=== PATIENT | female | born 1995 | race Caucasian/White ===

== ENCOUNTER 2018-10-30 19:40 | Emergency (ER) | payer OTHER ==
[~2018-10-30] VITALS: Ht 157.5 cm; Wt 100.0 kg
[2018-10-30 19:47] VITALS: BP 147/97
[2018-10-30] MEDS ORDERED: BENZ-16 PO (20:23)
[2018-10-30] MEDS ORDERED: AZIT250T PO (20:23)
== END 2018-10-30 21:11 | disposition home or self-care (01) ==
LOC: ER 19:42 → EEVIPCON 19:42 → ER 21:11
DX: J06.9 Acute upper respiratory infection, unspecified (principal); Z87.891 Personal history of nicotine dependence; Z79.899 Other long term (current) drug therapy
CPT/HCPCS: 99283

== ENCOUNTER 2019-02-01 09:43 | Outpatient (CLI) | payer OTHER ==
[~2019-02-01 09:43] MED LIST: AZIT250T PO
[2019-02-01 10:17] LABS: BASOPHILS # (AUTO) 0.1 X10'3 (0-0.2); BASOPHILS % (AUTO) 0.7 % (0-1); EOSINOPHILS # (AUTO) 0.3 X10'3 (0-0.9); HEMOGLOBIN 13.3 g/dl (12.0-16.0); LYMPHOCYTES # (AUTO) 2.5 X10'3 (1.1-4.8); LYMPHOCYTES % (AUTO) 35.9 % (21-51); MEAN CORPUSCULAR HEMOGLOBIN 26.3 PG (27.0-31.0); MEAN CORPUSCULAR HGB CONC 33.1 g/dL (33.0-36.5); MEAN CORPUSCULAR VOLUME 79.5 FL (78-98); MEAN PLATELET VOLUME 7.1 FL (7.4-10.4); MONOCYTES # (AUTO) 0.6 X10'3 (0-0.9); NEUTROPHILS # (AUTO) 3.5 X10'3 (1.8-7.7); NEUTROPHILS % (AUTO) 49.4 % (42-75); PLATELET COUNT 339 X10'3 (140-440); RED BLOOD COUNT 5.04 X10'6 (4.20-5.60); RED CELL DISTRIBUTION WIDTH 14.7 % (11.5-14.5)
[2019-02-01 10:18] LABS: CLARITY,URINE CLEAR (Clear); COLOR,URINE YELLOW (Yellow); GLUCOSE, URINE NEGATIVE (Neg); KETONES,URINE NEGATIVE (Neg); LEUKOCYTE ESTERASE ,URINE NEGATIVE (Neg); NITRITES, URINE NEGATIVE (Neg); OCCULT BLOOD,URINE NEGATIVE (Neg); PH,URINE 5.5 (4.8-8.0); PROTEIN,URINE NEGATIVE (Neg); UROBILINOGEN,URINE 0.2 E.U/dL (0.2-1.0)
[2019-02-01 10:19] LABS: UA COLLECTION TYPE CLN CATCH MIDSTREAM
[2019-02-01 10:39] LABS: ALANINE AMINOTRANSFERASE 28 U/L (12-78); ALBUMIN 3.8 G/DL (3.4-5.0); ALBUMIN/GLOBULIN RATIO 1.1 (1.1-1.5); ALKALINE PHOSPHATASE 28 IU/L (46-116); ANION GAP 9 (8-16); ASPARTATE AMINO TRANSFERASE 16 U/L (10-37); BILIRUBIN,TOTAL 0.3 MG/DL (0.1-1.0); BLOOD UREA NITROGEN 7 MG/DL (7-18); BUN/CREATININE RATIO 11.9 (6.6-38.0); CHLORIDE 105 MMOL/L (99-107); CHOL/HDL RATIO 3.9 (0.00-4.99); CHOLESTEROL 156 MG/DL (0-200); CREATININE 0.59 MG/DL (0.40-0.90); GLUCOSE 87 MG/DL (70-104); HDL CHOLESTEROL 40 MG/DL (35-60); LDL CHOLESTEROL 96 MG/DL (50-100); POTASSIUM 3.7 MMOL/L (3.5-5.1); SODIUM 140 MMOL/L (135-145); TOTAL CARBON DIOXIDE 26.1 MMOL/L (24-32); TOTAL PROTEIN 7.4 G/DL (6.4-8.2); TRIGLYCERIDES 125 MG/DL (20-135); eGFR > 90 ML/MIN
== END 2019-02-01 23:59 | disposition home or self-care (01) ==
LOC: LAB 09:43
PROVIDERS: ATTEND Family Medicine
DX: J30.2 Other seasonal allergic rhinitis (principal); G47.30 Sleep apnea, unspecified; F32.9 Major depressive disorder, single episode, unspecified; F41.9 Anxiety disorder, unspecified; Z76.89 Persons encountering health services in other specified circumstances; Z87.891 Personal history of nicotine dependence
CPT/HCPCS: 36415; 80053; 80061; 81003; 84439; 84443; 85025

== ENCOUNTER 2019-04-11 20:57 | Emergency (ER) | payer OTHER ==
[~2019-04-11] VITALS: Ht 157.5 cm; Wt 97.7 kg
[2019-04-11 21:00] VITALS: BP 144/91
[2019-04-11] MEDS ORDERED: dexamethasone 4mg tablet PO ONE (21:45)
[2019-04-11] MEDS ORDERED: IBUP-1985 PO (21:49)
== END 2019-04-11 22:14 | disposition home or self-care (01) ==
LOC: ER 20:57
DX: J02.9 Acute pharyngitis, unspecified (principal); R13.10 Dysphagia, unspecified; R06.02 Shortness of breath; R09.89 Other specified symptoms and signs involving the circulatory and respiratory systems; R59.0 Localized enlarged lymph nodes; Z91.018 Allergy to other foods; Z79.2 Long term (current) use of antibiotics; Z79.1 Long term (current) use of non-steroidal anti-inflammatories (NSAID)
CPT/HCPCS: 87081; 87880; 99283

== ENCOUNTER 2019-05-19 17:31 | Emergency (ER) | payer OTHER ==
[~2019-05-19] VITALS: Ht 157.5 cm; Wt 93.0 kg
[~2019-05-19 17:31] MED LIST changes: +IBUP-1985 PO
[2019-05-19 17:46] VITALS: BP 154/99
[2019-05-19] MEDS ORDERED: meclizine 12.5mg tablet PO ONE (19:10)
[2019-05-19] MEDS ORDERED: DICY10CA88 PO (19:15)
[2019-05-19] MEDS ORDERED: MECL-111 PO (19:15)
[2019-05-19] MEDS ORDERED: ONDA4TAB6 PO (19:15)
== END 2019-05-19 19:30 | disposition home or self-care (01) ==
LOC: ER 17:31
DX: H81.399 Other peripheral vertigo, unspecified ear (principal); R11.2 Nausea with vomiting, unspecified; F32.9 Major depressive disorder, single episode, unspecified; Z79.2 Long term (current) use of antibiotics; Z79.899 Other long term (current) drug therapy
CPT/HCPCS: 99283; J8597

== ENCOUNTER 2019-07-10 17:20 | Emergency (ER) | payer OTHER ==
[~2019-07-10] VITALS: Ht 157.5 cm; Wt 97.0 kg
[~2019-07-10 17:20] MED LIST changes: +DICY10CA88 PO; +MECL-159 PO; +ONDA4TAB6 PO
[2019-07-10 17:22] VITALS: BP 155/88
[2019-07-10] MEDS ORDERED: penicillin G benzathine 1.2 million unit/2ml syringe IM ONE (18:30)
== END 2019-07-10 18:51 | disposition home or self-care (01) ==
LOC: ER 17:21
DX: J02.9 Acute pharyngitis, unspecified (principal); Z79.899 Other long term (current) drug therapy
CPT/HCPCS: 87081; 87880; 96372; 99284; J0561

== ENCOUNTER 2019-11-18 21:51 | Emergency (ER) | payer OTHER ==
[~2019-11-18] VITALS: Ht 157.5 cm; Wt 93.6 kg
[2019-11-18 21:55] VITALS: BP 136/93
[2019-11-18 22:31] LABS: BASOPHILS # (AUTO) 0.1 X10'3 (0-0.2); BASOPHILS % (AUTO) 0.6 % (0-1); EOSINOPHILS # (AUTO) 0.4 X10'3 (0-0.9); EOSINOPHILS % (AUTO) 3.9 % (0-6); HEMATOCRIT 40.5 % (35.0-45.0); HEMOGLOBIN 13.4 g/dl (12.0-16.0); LYMPHOCYTES # (AUTO) 2.9 X10'3 (1.1-4.8); LYMPHOCYTES % (AUTO) 29.4 % (21-51); MEAN CORPUSCULAR HEMOGLOBIN 26.4 PG (27.0-31.0); MEAN CORPUSCULAR HGB CONC 33.1 g/dL (33.0-36.5); MEAN CORPUSCULAR VOLUME 79.9 FL (78-98); MEAN PLATELET VOLUME 7.5 FL (7.4-10.4); MONOCYTES # (AUTO) 0.9 X10'3 (0-0.9); MONOCYTES % (AUTO) 9.4 % (2-12); NEUTROPHILS # (AUTO) 5.6 X10'3 (1.8-7.7); NEUTROPHILS % (AUTO) 56.7 % (42-75); PLATELET COUNT 350 X10'3 (140-440); RED BLOOD COUNT 5.07 X10'6 (4.20-5.60); RED CELL DISTRIBUTION WIDTH 14.6 % (11.5-14.5); WHITE BLOOD COUNT 9.8 X10'3 (4.5-11.0)
[2019-11-18 22:42] LABS: URINE HCG NEGATIVE (NEG)
[2019-11-18 22:45] LABS: CLARITY,URINE CLEAR (Clear); COLOR,URINE YELLOW (Yellow); GLUCOSE, URINE NEGATIVE (Neg); KETONES,URINE NEGATIVE (Neg); LEUKOCYTE ESTERASE ,URINE NEGATIVE (Neg); NITRITES, URINE NEGATIVE (Neg); OCCULT BLOOD,URINE LARGE (Neg); PH,URINE 5.5 (4.8-8.0); PROTEIN,URINE NEGATIVE (Neg); UROBILINOGEN,URINE 0.2 E.U/dL (0.2-1.0)
[2019-11-18 22:46] LABS: ALANINE AMINOTRANSFERASE 21 U/L (12-78); ALBUMIN 3.8 G/DL (3.4-5.0); ALKALINE PHOSPHATASE 30 IU/L (46-116); ANION GAP 7 (8-16); ASPARTATE AMINO TRANSFERASE 15 U/L (10-37); BILIRUBIN,TOTAL 0.2 MG/DL (0.1-1.0); BLOOD UREA NITROGEN 10 MG/DL (7-18); BUN/CREATININE RATIO 12.8 (6.6-38.0); CALCIUM 9.5 MG/DL (8.5-10.1); CHLORIDE 108 MMOL/L (99-107); CREATININE 0.78 MG/DL (0.40-0.90); GLUCOSE 78 MG/DL (70-104); POTASSIUM 4.4 MMOL/L (3.5-5.1); SODIUM 144 MMOL/L (135-145); TOTAL CARBON DIOXIDE 28.7 MMOL/L (24-32); TOTAL PROTEIN 7.6 G/DL (6.4-8.2); eGFR 89 ML/MIN
[2019-11-18 22:52] LABS: UA COLLECTION TYPE CLN CATCH MIDSTREAM
[2019-11-18 22:53] LABS: BACTERIA,URINE FEW /HPF (Neg); RBC,URINE 0-2 /HPF (0-2); SQUAMOUS EPITHELIAL CELL,UR FEW /LPF (FEW); WBC,URINE 0-4 /HPF (0-4)
[2019-11-18 22:55] LABS: MAGNESIUM 2.3 MG/DL (1.5-2.4)
== END 2019-11-18 23:21 | disposition home or self-care (01) ==
LOC: ER 21:52 → EEVIPCON 21:52 → ER 23:21
DX: R53.81 Other malaise (principal); R53.83 Other fatigue; R63.0 Anorexia
CPT/HCPCS: 36415; 80053; 81001; 81025; 83735; 84443; 85025; 99283

== ENCOUNTER 2022-07-10 05:28 | Inpatient (IN) | payer MEDICAID, OTHER ==
[2022-07-08 14:54] LABS: BASOPHILS % (AUTO) 0.6 % (0-1); EOSINOPHILS # (AUTO) 0.2 X10'3 (0-0.9); EOSINOPHILS % (AUTO) 3.2 % (0-6); LYMPHOCYTES # (AUTO) 1.5 X10'3 (1.1-4.8); LYMPHOCYTES % (AUTO) 21.6 % (21-51); MEAN CORPUSCULAR HEMOGLOBIN 25.4 PG (27.0-31.0); MEAN CORPUSCULAR HGB CONC 32.5 g/dL (33.0-36.5); MEAN PLATELET VOLUME 7.2 FL (7.4-10.4); MONOCYTES # (AUTO) 0.6 X10'3 (0-0.9); MONOCYTES % (AUTO) 9.2 % (2-12); NEUTROPHILS # (AUTO) 4.4 X10'3 (1.8-7.7); NEUTROPHILS % (AUTO) 65.4 % (42-75); PRE OP HEMATOCRIT 38.6 % (35.0-45.0); PRE OP HEMOGLOBIN 12.6 g/dL (12.0-16.0); PRE OP PLATELET COUNT 307 X10'3 (140-440); RED BLOOD COUNT 4.95 X10'6 (4.20-5.60); RED CELL DISTRIBUTION WIDTH 16.5 % (11.5-14.5)
[2022-07-08 15:11] LABS: ALBUMIN 3.8 G/DL (3.4-5.0); ALBUMIN/GLOBULIN RATIO 0.9 (1.1-1.5); ALKALINE PHOSPHATASE 37 IU/L (46-116); BLOOD UREA NITROGEN 5 MG/DL (7-18); CALCIUM 9.5 MG/DL (8.5-10.1); CHLORIDE 104 MMOL/L (99-107); PRE OP ALT 23 U/L (30-65); PRE OP ANION GAP 4 (8-16); PRE OP AST 19 U/L (10-37); PRE OP BILIRUB, TOTAL 0.2 MG/DL (0.0-1.0); PRE OP GLUCOSE 85 MG/DL (70-104); PRE OP POTASSIUM 3.6 MMOL/L (3.4-5.1); PRE OP SODIUM 137 MMOL/L (135-145); TOTAL PROTEIN 7.9 G/DL (6.4-8.2); eGFR > 90 ML/MIN
[2022-07-08 15:14] LABS: HCG SERUM QL NEGATIVE
[2022-07-10] VITALS (22 sets, daily range): BP systolic 103–146; BP diastolic 63–90
[~2022-07-10] VITALS: Ht 157.5 cm; Wt 104.6 kg
[~2022-07-10 05:28] MED LIST changes: -AZIT250T PO; -DICY10CA88 PO; -IBUP-1985 PO; -MECL-159 PO; +NORE0.3552 PO; -ONDA4TAB6 PO; +PREN-16 PO
[2022-07-10] MEDS ORDERED: phenazopyridine 100mg tablet PO ONE (05:30)
[2022-07-10] MEDS ORDERED: famotidine 20mg tablet PO ONE (05:30)
[2022-07-10] MEDS ORDERED: acetaminophen 325mg tablet PO ONE (05:30)
[2022-07-10] MEDS ORDERED: tranexamic acid inj. 1,000 MG in normal saline IV soln 100ML IV ONE (05:30)
[2022-07-10] MEDS ORDERED: gabapentin 300mg capsule PO ONE (05:30)
[2022-07-10] MEDS ORDERED: ceFOXitin 2GM-NS 100mL ADDvant 100 ML IV ONE (05:30)
[2022-07-10] MEDS: ringers solution, lacted 1,000 ML IV SCH (06:27)
[2022-07-10] MEDS ORDERED: vasoPRESSIN 20 units/ml inj. ONE (06:39)
[2022-07-10] MEDS ORDERED: midazolam 1 mg/ML 2ml injection ONE (07:29)
[2022-07-10] MEDS ORDERED: fentaNYL /PF 50mcg/ml 5ml ampule ONE (07:30)
[2022-07-10] MEDS ORDERED: propofol inj 20 ML IV ONE (07:31)
[2022-07-10] MEDS ORDERED: rocuronium 10mg/ml inj IV ONE (07:31)
[2022-07-10] MEDS ORDERED: LIDOcaine 2% (20mg/ml) 5ml vial ONE (07:31)
[2022-07-10] MEDS ORDERED: dexamethasone sod phosphate 4mg/ml inj. ONE (07:32)
[2022-07-10] MEDS ORDERED: ondansetron/PF 4mg/2ml inj IV PRN ×2 (07:35→10:15)
[2022-07-10] MEDS ORDERED: proCHLORperazine 10 MG/2 ml inj IV PRN (07:35)
[2022-07-10] MEDS ORDERED: morphine 2 MG/ML inj. syringe IV PRN (07:35)
[2022-07-10] MEDS ORDERED: morphine 4 MG/ML inj SYRINge IV PRN (07:35)
[2022-07-10] MEDS ORDERED: ringers solution, lacted 1,000 ML IV SCH (07:35)
[2022-07-10] MEDS ORDERED: meperidine/PF 25mg/ml syringe IV PRN ×3 (07:35)
[2022-07-10] MEDS ORDERED: BUPIVAcaine 0.5% inj/PF 30 ML ONE (09:10)
[2022-07-10] MEDS ORDERED: ketorolac trometh. 30mg/ml inj. ONE (09:28)
[2022-07-10] MEDS ORDERED: BUPIVAcaine 0.5% inj/PF 30 ml vial IJ ONE (09:31)
[2022-07-10] MEDS ORDERED: neostigmine methylsulfate 1 MG/ML 10ml vial ONE (09:35)
[2022-07-10] MEDS ORDERED: glycopyrrolate 0.2mg/ml inj ONE (09:35)
--- NOTE | 2022-07-10 09:47 | NUR ---
Received from OR via HOSPITAL BED , accompanied by Anesthesiologist and report given by PANCHO Anesthesiologist. PATIENT WAKING UP, DENIES PAIN, V/S WNL, SCD ON , PIV 20G LEFT HAND, DERMABONDED LAP SITE CLOSED C/D/I TO ABDOMEN. AVINA CATHETER DRAINING CLEAR YELLOW URINE. Addendum: 07/10/22 at 1017 by Deejay Tian RN Amended: Links added.
[2022-07-10] MEDS ORDERED: HYDROmorphone/PF 0.2 MG/ML SYRINGE IV PRN (10:15)
[2022-07-10] MEDS ORDERED: oxyCODONE IR 5mg (immed. release) tablet PO PRN (10:15)
[2022-07-10] MEDS ORDERED: LORazepam 2 mg/ml vial IV PRN (10:15)
--- NOTE | 2022-07-10 10:45 | NUR ---
Received report from [facility]CRE[facility] OPERAT[facility]eejay
--- NOTE | 2022-07-10 11:07 | NUR ---
PATIENT HAS MET ALL CRITERIA FOR TRANSFER TO SURGICAL FLOOR. VSS. DRESSINGS INTACT. BED LOW, CALL LIGHT PRESENT AND 2 RAILS UP. RN PRESENT TO ACCEPT CARE OF PATIENT AND REPORT HAS BEEN CALLED. ALL QUESTIONS ANSWERED TO ACCEPTING RN. Addendum: 07/10/22 at 1121 by Deejay Tian RN Amended: Links added.
[2022-07-10] MEDS: simethicone 80mg chew tab PO SCH ×2 (13:22→16:47)
[2022-07-10] MEDS: acetaminophen 325mg tablet PO SCH ×2 (13:22→20:12)
[2022-07-10] MEDS: ketorolac trometh. 30mg/ml inj. IV SCH ×2 (13:23→20:12)
[2022-07-10] MEDS: oxyCODONE IR 5mg (immed. release) tablet PO PRN ×2 (16:47→21:33)
--- NOTE | 2022-07-10 18:50 | NUR ---
Problems reprioritized. Patient report given, questions answered & plan of care reviewed with EROS Freeman.
[2022-07-10] MEDS: docusate sod 100mg capsule PO SCH (20:12)
[2022-07-11] MEDS: ringers solution, lacted 1,000 ML IV SCH (01:09)
[2022-07-11 02:00] VITALS: BP 118/77
[2022-07-11] MEDS: ketorolac trometh. 30mg/ml inj. IV SCH ×3 (02:04→13:16)
[2022-07-11] MEDS: acetaminophen 325mg tablet PO SCH ×3 (02:04→13:16)
[2022-07-11 04:53] LABS: BASOPHILS % (AUTO) 0.2 % (0-1); EOSINOPHILS % (AUTO) 0.1 % (0-6); HEMATOCRIT 33.7 % (35.0-45.0); HEMOGLOBIN 11.1 g/dl (12.0-16.0); LYMPHOCYTES # (AUTO) 1.5 X10'3 (1.1-4.8); LYMPHOCYTES % (AUTO) 13.3 % (21-51); MEAN CORPUSCULAR HEMOGLOBIN 25.5 PG (27.0-31.0); MEAN CORPUSCULAR HGB CONC 32.9 g/dL (33.0-36.5); MEAN CORPUSCULAR VOLUME 77.6 FL (78-98); MEAN PLATELET VOLUME 7.4 FL (7.4-10.4); MONOCYTES % (AUTO) 9.1 % (2-12); NEUTROPHILS # (AUTO) 8.6 X10'3 (1.8-7.7); NEUTROPHILS % (AUTO) 77.3 % (42-75); PLATELET COUNT 282 X10'3 (140-440); RED BLOOD COUNT 4.34 X10'6 (4.20-5.60); WHITE BLOOD COUNT 11.2 X10'3 (4.5-11.0)
[2022-07-11 05:27] LABS: ANION GAP 5 (8-16); BLOOD UREA NITROGEN 9 MG/DL (7-18); BUN/CREATININE RATIO 19.1 (6.6-38.0); CALCIUM 8.7 MG/DL (8.5-10.1); CHLORIDE 105 MMOL/L (99-107); CREATININE 0.47 MG/DL (0.40-0.90); GLUCOSE 122 MG/DL (70-104); POTASSIUM 3.6 MMOL/L (3.5-5.1); SODIUM 137 MMOL/L (135-145); TOTAL CARBON DIOXIDE 27.4 MMOL/L (24-32); eGFR > 90 ML/MIN
[2022-07-11 05:30] VITALS: BP 120/72
--- NOTE | 2022-07-11 06:20 | NUR ---
Patient in room [id number]. I have received report from EROS Freeman and had the opportunity to ask questions and assume patient care.
--- NOTE | 2022-07-11 06:34 | NUR ---
Problems reprioritized. Patient report given, questions answered & plan of care reviewed with EROS Durant.
[2022-07-11] MEDS: simethicone 80mg chew tab PO SCH ×2 (08:19→13:16)
[2022-07-11] MEDS: docusate sod 100mg capsule PO SCH (08:19)
[2022-07-11 10:00] VITALS: BP 122/79
--- NOTE | 2022-07-11 15:05 | NUR ---
DC inst provided to pt. IV DC'd, tip intact. All belongings sent w/pt. WC to vehicle.
== END 2022-07-11 15:05 | disposition home or self-care (01) | DRG 519 ==
LOC: PAS IN 05:28 → SUR 3N 11:10
PROVIDERS: ADMIT Obstetrics & Gynecology; ATTEND Obstetrics & Gynecology
PROC: 0UB10ZZ Excision of Left Ovary, Open Approach (ICD-10-PCS; 2022-07-10)
PROC: 0UB90ZZ Excision of Uterus, Open Approach (ICD-10-PCS; principal; 2022-07-10 07:47)
DX: D25.9 Leiomyoma of uterus, unspecified (principal); N83.202 Unspecified ovarian cyst, left side
CPT/HCPCS: 36415; 80048; 80053; 82948; 84703; 85025; 86885; 86900; 86901; 87081; A4618; A6250; A6449; A7000; C1758; G0378; J1100; J1170; J1885; J2175; J2250; J2405; J2704; J2710; J3010; J3490; J7120; S0020